=== PATIENT | male | born 1965 | race Caucasian/White ===

== ENCOUNTER 2022-06-11 11:23 | Outpatient (CLI) | payer OTHER | END 2022-06-11 11:24 | disposition home or self-care (01) | LOC: BICRAD 11:23 | PROVIDERS: ATTEND Chiropractor | DX: M25.531 Pain in right wrist (principal); M25.532 Pain in left wrist ==

== ENCOUNTER 2022-08-22 11:07 | Emergency (ER) | payer SELFPAY ==
[2022-08-22] MEDS ORDERED: Bupivacaine 0.25% 10 ML VIAL ONE ×2 (11:12→12:18)
[2022-08-22] MEDS ORDERED: Boostrix 0.5 ML (Tdap) VIAL (>/=7 yrs of age) ONE (12:18)
[2022-08-22] MEDS ORDERED: CEFAZOLIN 2 GM VIAL ONE (14:05)
== END 2022-08-22 16:27 | disposition home or self-care (01) ==
LOC: ERS 11:07
DX: S68.622A Partial traumatic transphalangeal amputation of right middle finger, initial encounter (principal); W31.2XXA Contact with powered woodworking and forming machines, initial encounter; Z23 Encounter for immunization
CPT/HCPCS: 26770; 90471; 90715; 96365; S0020